=== PATIENT | female | born 1955 | race Hispanic/Latino ===

== ENCOUNTER → 2018-03-04 08:03 | Outpatient (CLI) | payer MEDICARE, SELFPAY ==
[2018-03-04 09:37] LABS: Appearance Urine UA CLEAR; Bilirubin Urine UA NEGATIVE (NEGATIVE); Color Urine UA YELLOW; Glucose Urine UA NEGATIVE (Normal); Ketones Urine UA NEGATIVE (NEGATIVE); Leukocyte Esterase Urine UA TRACE (NEGATIVE); Nitrite Urine UA Negative (Negative); Occult Blood Urine UA NEGATIVE (Negative); Protein Urine UA NEGATIVE (Negative); Specific Gravity Urine UA 1.025 (1.000-1.035); Urobilinogen Urine UA 0.2 E.U./dL (0.2); pH Urine UA 5.5 (4.5-8.0)
[2018-03-04 09:45] LABS: Bacteria Urine None Seen; Culture Indicated Urine Cult Not Indicated; RBC Urine 0-1/HPF (0-5/HPF); Squamous Epithelial Cell Urine 0-1 /HPF; WBC Urine 1-5/HPF (0-5/HPF)
[2018-03-04 09:47] LABS: Add Manual Diff / Slide Review NO; Basophils Percent Auto 0.7 % (0-2); Eosinophils Percent Auto 5.7 % (2-4); Hematocrit 35.4 % (36-46); Hemoglobin 11.7 g/dL (12.0-16.0); Lymphocytes Percent Auto 34.5 % (25-40); Mean Corpuscular HGB Conc 33.2 % (30-36); Mean Corpuscular Hemoglobin 29.3 PG (26-34); Mean Corpuscular Volume 88.4 fL (80-100); Monocytes Percent Auto 7.4 % (3-14); Neutrophils Absolute Auto 3500 /uL (3000-5900); Neutrophils Percent Auto 51.7 % (50-75); Platelet Count 226 X10^3/uL (150-400); Red Blood Cell Count 4.01 X10^6/uL (4.0-5.2); Red Cell Distribution Width 15.7 % (11.6-14.8); White Blood Cell Count 6.8 X10^3/uL (4.5-11.0)
[2018-03-04 09:53] LABS: Alanine Aminotransferase 30 IU/L (9-52); Albumin 3.5 g/dL (3.5-5.0); Albumin Globulin Ratio 1.1 (1.0-2.8); Alkaline Phosphatase 91 U/L (38-126); Aspartate Aminotransferase 24 IU/L (14-36); Bilirubin Total 0.3 mg/dL (0.2-1.3); Blood Urea Nitrogen 22 mg/dL (7-17); Calcium 10.7 mg/dL (8.4-10.2); Carbon Dioxide 26 mmol/L (22-32); Chloride 106 mmol/L (98-107); Cholesterol 149 mg/dL (140-199); Estimated Glomerular Filt Rate 50.7 mL/min (>60); Globulin 3.2 g/dL (1.7-4.1); Glucose 107 mg/dL (80-110); HDL Cholesterol 51 mg/dL (40-60); HEMOLYSIS < 15 (0-50); LDL Cholesterol Calculated 73 mg/dL (<100); Potassium 4.6 mmol/L (3.4-5.1); Sodium 140 mmol/L (137-145); Total Protein 6.7 g/dL (6.3-8.2); Triglycerides 123 mg/dL (35-150)
[2018-03-04 10:17] LABS: Thyroid Stimulating Hormone 2.31 uIU/mL (0.47-4.68)
== END ==
PROVIDERS: PCP Family Medicine; Visit Provider Family Medicine
DX: I10 Essential (primary) hypertension (principal); N28.9 Disorder of kidney and ureter, unspecified; Z51.81 Encounter for therapeutic drug level monitoring
CPT/HCPCS: 36415; 80053; 80061; 81003; 81015; 84443; 85025

== ENCOUNTER → 2018-10-25 09:56 | Outpatient (CLI) | payer MEDICARE, SELFPAY ==
[2018-10-25 10:44] LABS: Influenza A and B by PCR Rapid Negative (Negative)
== END ==
PROVIDERS: Family Provider Family Medicine; PCP Family Medicine; Visit Provider Family Medicine
DX: J06.9 Acute upper respiratory infection, unspecified (principal); R68.89 Other general symptoms and signs
CPT/HCPCS: 87400

== ENCOUNTER → 2019-07-12 11:03 | Outpatient (CLI) | payer MEDICARE, SELFPAY ==
[2019-07-12 12:36] LABS: Add Manual Diff / Slide Review NO; Basophils Absolute Auto 100 /uL (0-100); Basophils Percent Auto 0.7 % (0-2); Eosinophils Absolute Auto 300 /uL (0-450); Eosinophils Percent Auto 3.3 % (2-4); Hematocrit 39.3 % (36-46); Hemoglobin 12.9 g/dL (12.0-16.0); Lymphocytes Absolute Auto 3100 /uL (1100-4500); Lymphocytes Percent Auto 33.6 % (25-40); Mean Corpuscular HGB Conc 32.9 % (30-36); Mean Corpuscular Hemoglobin 28.6 PG (26-34); Monocytes Absolute Auto 400 /uL (0-900); Monocytes Percent Auto 4.7 % (3-14); Neutrophils Absolute Auto 5300 /uL (1500-7000); Neutrophils Percent Auto 57.7 % (50-75); Platelet Count 301 X10^3/uL (150-400); Red Blood Cell Count 4.52 X10^6/uL (4.0-5.2); Red Cell Distribution Width 14.7 % (11.6-14.8); White Blood Cell Count 9.3 X10^3/uL (4.5-11.0)
[2019-07-12 12:36] LABS: Appearance Urine UA SL CLOUDY; Bilirubin Urine UA NEGATIVE (NEGATIVE); Color Urine UA YELLOW; Glucose Urine UA NEGATIVE (Negative); Ketones Urine UA NEGATIVE (NEGATIVE); Leukocyte Esterase Urine UA 3+ (NEGATIVE); Nitrite Urine UA NEGATIVE (Negative); Occult Blood Urine UA TRACE-INTACT (Negative); Protein Urine UA NEGATIVE (Negative); Specific Gravity Urine UA 1.015 (1.000-1.035)
[2019-07-12 12:55] LABS: pH Urine UA 5.5 (4.5-8.0)
[2019-07-12 12:56] LABS: Bacteria Urine Many (>30); Culture Indicated Urine Cult Not Indicated; RBC Urine 0-1/HPF (0-5/HPF); Squamous Epithelial Cell Urine 10-30 /HPF (0-5/HPF); WBC Urine 30-100/HPF (0-5/HPF)
[2019-07-12 13:02] LABS: Alanine Aminotransferase 22 IU/L (<35); Albumin 3.8 g/dL (3.5-5.0); Albumin Globulin Ratio 1.2 (1.0-2.8); Alkaline Phosphatase 118 U/L (38-126); Aspartate Aminotransferase 27 IU/L (14-36); Bilirubin Total 0.4 mg/dL (0.2-1.3); Blood Urea Nitrogen 18 mg/dL (7-17); Calcium 11.4 mg/dL (8.4-10.2); Carbon Dioxide 27 mmol/L (22-32); Chloride 108 mmol/L (98-107); Cholesterol 160 mg/dL (140-199); Estimated Glomerular Filt Rate 56.4 mL/min (>60); Globulin 3.3 g/dL (1.7-4.1); Glucose 113 mg/dL (80-110); HDL Cholesterol 40 mg/dL (40-60); HEMOLYSIS < 15 (0-50); LDL Cholesterol Calculated 102 mg/dL (<100); Potassium 4.8 mmol/L (3.4-5.1); Sodium 142 mmol/L (137-145); Total Protein 7.1 g/dL (6.3-8.2); Triglycerides 92 mg/dL (35-150)
[2019-07-12 13:32] LABS: Thyroid Stimulating Hormone 2.09 uIU/mL (0.47-4.68)
== END ==
PROVIDERS: PCP Family Medicine; Visit Provider Family Medicine
DX: Z13.220 Encounter for screening for lipoid disorders (principal); Z13.29 Encounter for screening for other suspected endocrine disorder; Z51.81 Encounter for therapeutic drug level monitoring; I10 Essential (primary) hypertension
CPT/HCPCS: 36415; 80053; 80061; 81003; 81015; 84443; 85025

== ENCOUNTER → 2019-09-12 12:10 | Outpatient (CLI) | payer MEDICARE, SELFPAY ==
--- NOTE | 2019-09-12 | DI.RAD.S_ITS ---
PROCEDURE: XR CHEST 2V INDICATIONS: BRONCHITIS EXACERBATION OF ASTHMA TECHNIQUE: 2 views of the chest were acquired. COMPARISON: None. FINDINGS: Surgical changes and devices: None. Lungs and pleura: Lungs are clear. No pleural effusions or pneumothorax. Mediastinum: Mediastinal contours are normal. Heart size is normal. Bones and chest wall: No suspicious bony abnormalities. Soft tissues appear unremarkable. IMPRESSION: Normal for age, source of current bronchitis symptoms is not seen. Dictated by: Jurgen Hong M.D. on 09/12/2019 at 13:23 Approved by: Jurgen Hong M.D. on 09/12/2019 at 13:35
== END ==
PROVIDERS: PCP Family Medicine; Visit Provider Family Medicine
DX: J45.901 Unspecified asthma with (acute) exacerbation (principal)
CPT/HCPCS: 71046

== ENCOUNTER → 2019-12-31 09:11 | Outpatient (CLI) | payer MEDICARE, SELFPAY ==
--- NOTE | 2019-12-31 09:16 | DI.RAD.S_ITS ---
PROCEDURE: XR SHOULDER RT MIN 2V INDICATIONS: 3 month follow up. TECHNIQUE: 3 views of the shoulder were acquired. COMPARISON: [facility], MR, MR SHOULDER RIGHT WITHOUT CONTRAST, 01/10/2019, 8:53. [facility], CR, XR SHOULDER 2+ VIEWS RIGHT, 12/27/2018, 8:29. [facility], CR, XR CHEST 2V, 09/12/2019, 12:33. FINDINGS: Bones: No acute fractures or dislocations. Healed greater tuberosity fracture. No suspicious bony lesions. Visualized ribs appear intact. Soft tissues: No suspicious soft tissue calcifications. IMPRESSION: Healed greater tuberosity fracture. Dictated by: Ravi Flores M.D. on 12/31/2019 at 9:50 Approved by: Ravi Flores M.D. on 12/31/2019 at 9:53
--- NOTE | 2019-12-31 09:16 | DI.RAD.S_ITS ---
PROCEDURE: XR LUMBAR SPINE MIN 4V INDICATIONS: 3 month follow up. TECHNIQUE: 4 views of the lumbar spine were acquired. COMPARISON: [facility], CR, XR CHEST 2V, 09/12/2019, 12:33. FINDINGS: Bones: 5 nonrib-bearing vertebrae are present. There is a mild anterolisthesis of L4 on L5. Minimal scoliosis. No vertebral body compression fractures. No suspicious bony lesions. L4 and L5 facet joint hypertrophy. Narrowing of the L5 neural foramen. Mild degenerative change. Soft tissues: Overlying bowel gas pattern is normal. No suspicious soft tissue calcifications. IMPRESSION: Mild anterolisthesis of L4 on L5 and mild degenerative change. Dictated by: Ravi Flores M.D. on 12/31/2019 at 9:53 Approved by: Ravi Flores M.D. on 12/31/2019 at 9:56
== END ==
PROVIDERS: PCP Family Medicine; Referring Provider Family Medicine; Visit Provider Family Medicine
DX: M54.9 Dorsalgia, unspecified (principal); M47.816 Spondylosis without myelopathy or radiculopathy, lumbar region; M43.16 Spondylolisthesis, lumbar region; S42.251D Displaced fracture of greater tuberosity of right humerus, subsequent encounter for fracture with routine healing; G89.29 Other chronic pain
CPT/HCPCS: 72110; 73030

== ENCOUNTER → 2020-04-03 11:00 | Outpatient (CLI) | payer MEDICARE, SELFPAY ==
[2020-04-03 12:06] LABS: Hemoglobin A1C% w Est Avg Glu 6.8 % (4.0-6.0)
[2020-04-03 12:45] LABS: Alanine Aminotransferase 19 IU/L (<35); Albumin 3.6 g/dL (3.5-5.0); Albumin Globulin Ratio 1.1 (1.0-2.8); Alkaline Phosphatase 107 U/L (38-126); Aspartate Aminotransferase 25 IU/L (14-36); BUN Creatinine Ratio 13.4 (6-22); Bilirubin Total 0.4 mg/dL (0.2-1.3); Blood Urea Nitrogen 13 mg/dL (7-17); Calcium 10.8 mg/dL (8.4-10.2); Carbon Dioxide 29 mmol/L (22-32); Chloride 105 mmol/L (98-107); Estimated Glomerular Filt Rate 58.2 mL/min (>60); Globulin 3.3 g/dL (1.7-4.1); Glucose 124 mg/dL (80-110); HEMOLYSIS < 15 (0-50); Potassium 4.6 mmol/L (3.4-5.1); Sodium 138 mmol/L (137-145); Total Protein 6.9 g/dL (6.3-8.2)
[2020-04-04 09:40] LABS: Parathyroid Hormone Int 132 pg/mL (15-65)
== END ==
LOC: LAB 11:01
PROVIDERS: PCP Family Medicine; Referring Provider Family Medicine; Visit Provider Family Medicine
DX: E21.3 Hyperparathyroidism, unspecified (principal); E66.9 Obesity, unspecified; I10 Essential (primary) hypertension
CPT/HCPCS: 36415; 80053; 83036; 83970

== ENCOUNTER → 2020-04-15 12:44 | Outpatient (CLI) | payer MEDICARE, SELFPAY ==
--- NOTE | 2020-04-15 | DI.US.S_ITS ---
PROCEDURE: US THYROID INDICATIONS: HYPERPARATHYROIDISM TECHNIQUE: Real-time scanning was performed of the thyroid gland, with image documentation. COMPARISON: None. FINDINGS: Right: Thyroid lobe measures 3.1 x 1.1 x 1.5 cm, and is homogeneous in echotexture. Left: Thyroid lobe measures 6.1 x 1.6 x 1.9 cm, and is homogenous in echotexture. Hypoechoic nodule adjacent to the inferior pole of the left thyroid suspicious for parathyroid adenoma measuring 3.6 x 1.8 x 1.5 cm. Isthmus: 3.0 mm thick. IMPRESSION: Findings suspicious for left parathyroid adenoma in this patient with history of hyperparathyroidism. If indicated, nuclear medicine parathyroid imaging could be performed for confirmation. Dictated by: Carl CAZARES Interpreted: Kamari Santiago MD on 04/15/2020 at 16:38 Approved by: Kamari Santiago M.D. on 04/15/2020 at 17:04
== END ==
PROVIDERS: PCP Family Medicine; Referring Provider Family Medicine; Visit Provider Family Medicine
DX: E21.3 Hyperparathyroidism, unspecified (principal); E04.1 Nontoxic single thyroid nodule
CPT/HCPCS: 76536

== ENCOUNTER → 2020-05-30 07:57 | Outpatient (CLI) | payer MEDICARE, SELFPAY ==
--- NOTE | 2020-05-30 08:05 | DI.NM.S_ITS ---
PROCEDURE: NM PARATHYROID RADIOPHARMACEUTICAL: 24.6 mCi Tc-99m sestamibi IV. INDICATIONS: further imaging per DI TECHNIQUE: After intravenous administration of Tc-99m sestamibi, anterior planar images of the neck and mediastinum were obtained at approximately 10 minutes and 2-3 hours. SPECT images were acquired after the 10 minute planar images. COMPARISON: [facility], , THYROID, 04/15/2020, 13:03. FINDINGS: On the early images, the thyroid gland is bilobed and has normal size and morphology. The delayed images show left-sided preferential tracer retention in the thyroid bed raising the possibility of parathyroid adenoma. IMPRESSION: Sonographic findings suggest the possibility of left-sided parathyroid adenoma. Dictated by: Chuckie Wong M.D. on 05/30/2020 at 16:37 Approved by: Chuckie Wong M.D. on 05/30/2020 at 16:45
== END ==
PROVIDERS: PCP Family Medicine; Referring Provider Family Medicine; Visit Provider Family Medicine
DX: E21.3 Hyperparathyroidism, unspecified (principal)
CPT/HCPCS: 78070; A9500